=== PATIENT | female | born 1935 ===

== ENCOUNTER 2018-03-28 08:51 | Observation (INO) | payer MEDICARE ==
[~2018-03-28] VITALS: Ht 149.9 cm; Wt 48.8 kg
[~2018-03-28 08:51] MED LIST: ACET325 PO; ALEN70 PO; ASCO500 PO; ASPI81CH PO; Alphagan P 5ML5 ML BOTHEYES; BETA CAROTENE IO; Beta Carot25000 UNIT PO; CENTRUM SILVER1 EAC2 PO; CYAN500 PO; DOCU100 PO; FENO145 PO; FLUO10 PO; FURO80 PO; HYDR1TAB94 PO; Hydrocodone-Ap1 EA20 PO; INSDET100 SQ; INSLI100I; INSULANI SC; INSULANPEN SC; LAVAP17G PO; LOSA50 PO; METF500C PO; MULVITMINF PO; NIFE60ER PO; Norco 10-325 T1 EACH PO; OMEP10ER PO; OXYC5 PO; POTA10T PO; POTCHL20ER PO; Prilosec Otc20 MG PO; Sleep Aid25 M1 PO; Travatan Z5 ML BOTHEYES; VALS80 PO; VITAMIN C PO; VITAMIN D 3 PO
[2018-03-28 11:06] LABS: BASOPHILS ABSOLUTE AUTO 0.02 K/mm3 (0.00-0.23); BASOPHILS PERCENT AUTO 0 % (0-2); EOSINOPHILS PERCENT AUTO 0 % (0-6); Hematocrit 24.6 % (33.0-51.0); Hemoglobin 8.1 g/dL (11.5-16.0); IMMATURE GRAN ABSOLUTE AUTO 0.38 K/mm3 (0.00-0.10); IMMATURE GRAN PERCENT AUTO 2 % (0-1); LYMPHOCYTES ABSOLUTE AUTO 0.09 K/mm3 (0.84-5.20); LYMPHOCYTES PERCENT AUTO 0 % (21-46); MONOCYTES ABSOLUTE AUTO 0.66 K/mm3 (0.16-1.47); MONOCYTES PERCENT AUTO 3 % (4-13); Mean Corpuscular HGB 28.9 pg (26.0-34.0); Mean Corpuscular HGB Conc 32.9 g/dL (31.5-36.5); Mean Corpuscular Volume 88 fL (80-100); Mean Platelet Volume 10.8 fL (9.1-12.4); NEUTROPHILS ABSOLUTE AUTO 21.81 K/mm3 (1.96-9.15); NEUTROPHILS PERCENT AUTO 95 % (41-73); Platelet Count 310 K/mm3 (150-400); RDW Coefficient Variation 20.3 % (11.7-14.2); RDW Standard Deviation 64.6 fL (35.1-46.3); White Blood Cell Count 22.96 K/mm3 (4.00-11.30)
[2018-03-28 11:31] LABS: Albumin/Globulin Ratio 0.6 (0.8-1.8); Bilirubin, Total 2.4 mg/dL (0.1-1.0); Calcium, Blood 7.8 mg/dL (8.5-10.1); Creatinine, Blood 2.03 mg/dL (0.40-1.00); Globulin, Blood 3.2 g/dL (2.2-4.0); Potassium, Blood 4.8 mmol/L (3.5-5.5); Total Protein, Blood 5.2 g/dL (6.4-8.2)
[2018-03-28] MEDS ORDERED: Norco 10-325 T1 EACH PO (14:42)
[2018-03-28] MEDS ORDERED: ASCO500 PO (14:45)
[2018-03-28 17:48] LABS: Appearance, Urine Hazy (Clear); Bilirubin, Urine Neg (Neg); Blood, Urine Neg (Neg); Color, Urine Yellow (P-Yellow); Glucose Qualitative, Urine Neg (Neg); Ketones, Urine 1+ (Neg); Leukocyte Esterase, Urine 1+ (Neg); Nitrite, Urine Neg (Neg); Protein, Urine 3+ (Neg); Specific Gravity, Urine 1.015 (1.003-1.022); Urobilinogen, Urine 1+ (Normal)
[2018-03-28 18:10] LABS: Amorphous Light (0-Heavy)
[2018-03-28 18:11] LABS: Bacteria Many /hpf; Red Blood Cells, Urine 0-2 /hpf (0-2); Squamous Epithelial Cells Few /hpf (Few)
== END 2018-03-30 09:00 ==
LOC: ER 08:51 → ERHOLD 08:52 → MEDS 08:52 → ERHOLD 08:52 → MEDS 13:18
PROVIDERS: Emergency Medicine
DX: R29.6 Repeated falls (principal); R62.7 Adult failure to thrive; I11.0 Hypertensive heart disease with heart failure; I50.23 Acute on chronic systolic (congestive) heart failure; T14.8XXA Other injury of unspecified body region, initial encounter; J18.9 Pneumonia, unspecified organism; E11.9 Type 2 diabetes mellitus without complications; E78.5 Hyperlipidemia, unspecified; Z88.8 Allergy status to other drugs, medicaments and biological substances; Z79.899 Other long term (current) drug therapy; Z79.4 Long term (current) use of insulin
CPT/HCPCS: 36415; 51702; 70450; 71045; 80053; 81001; 82947; 84484; 85025; 87077; 87086; 87147; 87186; 93005; 93010; 96361; 96374; 96376; 99285; G0378; J0456; J0696; J2060; J7030; J7050